=== PATIENT | female | born 1945 | race Caucasian/White ===

== ENCOUNTER 2017-10-03 09:50 | Outpatient (CLI) ==
[2016-11-06 13:23] VITALS: BMI 47.1
--- NOTE | 2017-10-03 13:00 | DEXA ---
EXAM: DEXA scan. HISTORY: Osteoporosis. COMPARISON: None available. TECHNIQUE: [place] [id number]. DEXA scan lumbar spine performed. Quality of the study is good. BMD is 1.46 grams per square centim eter. T-score 2.3. Z-score the 2.8. DEXA scan hips performed. Quality of the study is good. BMD 0.852 grams per square centimeter. T-sc ore -1.2. Z-score -0.6. IMPRESSION: According to the World Health Organization classification, lumbar spine bone mineral density is tommy l. Hip bone mineral density demonstrates osteopenia, with high fracture risk. Ten-year major osteop orotic fracture risk is 14.8%. Ten-year hip fracture risk is 3.4%.
--- NOTE | 2017-10-03 13:04 | DI ---
EXAM: Five views of the lumbar spine HISTORY: Back pain COMPARISON: 09/16/2015 FINDINGS: There is mild levocurvature of the lumbar spine. Five lumbar-type vertebrae are present. The lumbar vertebral bodies are normal in height. No listhesis is seen. There is multilevel minimal interverte bral disc height loss with mild anterior osteophyte formation. Multilevel facet arthropathy is also seen which is up to moderate at L3-4. Atherosclerotic calcifications are seen. IMPRESSION: Similar findings of mild multilevel degenerative disc disease, and multilevel facet arthropathy which is up to moderate at L3-4.
== END 2017-10-03 09:51 | disposition home or self-care (01) ==
LOC: RAD 09:50
PROVIDERS: ATTEND Family Medicine
DX: M81.0 Age-related osteoporosis without current pathological fracture (principal); M54.5 Low back pain

== ENCOUNTER 2018-03-29 11:01 | Outpatient (CLI) | payer OTHER ==
[2016-11-06 13:23] VITALS: BMI 47.1
--- NOTE | 2018-03-29 15:10 | CT ---
EXAM: CT scan of the neck soft tissues without contrast HISTORY: Parotitis. TECHNIQUE: Helical imaging of the neck was performed without contrast. 3 mm thin axial images and c oronal and sagittal reconstructions were provided for interpretation. FINDINGS: The parotid glands and submandibular glands are normal. There are no inflammatory changes . The nasopharynx, tonsils, tongue base and floor the mouth appear normal. No acute abnormalities a re seen within the piriform sinuses. No abnormal lymph nodes are identified. The paranasal sinuses and mastoid air cells are clear. IMPRESSION: No acute abnormalities are seen within the soft tissues of the neck.
== END 2018-03-29 11:02 | disposition home or self-care (01) ==
LOC: RAD 11:01
PROVIDERS: ATTEND Family Medicine
DX: K11.20 Sialoadenitis, unspecified (principal)